=== PATIENT | female | born 1990 | race Caucasian/White ===

== ENCOUNTER 2019-10-27 22:12 | Inpatient (IN) | payer OTHER ==
[~2019-10-27] VITALS: Ht 167.6 cm; Wt 126.0 kg
[~2019-10-27 22:12] MED LIST: DIPH50 PO; TRIA80TC TOP
[2019-10-27 22:47] LABS: BASOPHILS ABSOLUTE AUTO 0.02 K/mm3 (0.00-0.23); BASOPHILS PERCENT AUTO 0 % (0-2); EOSINOPHILS ABSOLUTE AUTO 0.07 K/mm3 (0.00-0.68); EOSINOPHILS PERCENT AUTO 1 % (0-6); Hematocrit 40.8 % (33.0-51.0); Hemoglobin 13.6 g/dL (11.5-16.0); IMMATURE GRAN ABSOLUTE AUTO 0.07 K/mm3 (0.00-0.10); IMMATURE GRAN PERCENT AUTO 1 % (0-1); LYMPHOCYTES PERCENT AUTO 8 % (21-46); MONOCYTES ABSOLUTE AUTO 0.59 K/mm3 (0.16-1.47); MONOCYTES PERCENT AUTO 4 % (4-13); Mean Corpuscular HGB 29.4 pg (26.0-34.0); Mean Corpuscular HGB Conc 33.3 g/dL (31.5-36.5); Mean Corpuscular Volume 88 fL (80-100); Mean Platelet Volume 10.7 fL (9.1-12.4); NEUTROPHILS ABSOLUTE AUTO 12.31 K/mm3 (1.96-9.15); NEUTROPHILS PERCENT AUTO 86 % (41-73); Platelet Count 195 K/mm3 (150-400); RDW Coefficient Variation 14.2 % (11.7-14.2); RDW Standard Deviation 45.4 fL (35.1-46.3); Red Blood Cell Count 4.62 M/mm3 (3.80-5.20); White Blood Cell Count 14.26 K/mm3 (4.00-11.30)
[2019-10-27] MEDS ORDERED: PRENATAL TABLE1 EAC2 PO (22:57)
[2019-10-27] MEDS ORDERED: Evening Primro500 M1 PO (22:58)
--- NOTE | 2019-10-27 23:08 | NUR ---
LABS DRAWN FROM IV START PER HOSPITAL PROTOCOL
--- NOTE | 2019-10-28 17:30 | NUR ---
RN ROUNDED TO HELP PT WITH . INSTRUCT/DEMO WIDENING LATCH, CORRECT POSITIONING AND NIPPLE SHAPE AFTER FEEDS. INSTRUCT IN BOOKLET AND BROCHURE ON WHAT TO EXPECT WITH AND CHANGES IN NB DURING FIRST WEEK OF LIFE. PARENTS LOVING, VERBALIZED UNDERSTANDING AND DENIES ANY FURTHER QUESTIONS OR CONCERNS.
[2019-10-29] MEDS ORDERED: IBU800 M1 PO (07:33)
[2019-10-29 09:07] LABS: Hematocrit 36.5 % (33.0-51.0); Mean Corpuscular HGB 29.6 pg (26.0-34.0); Mean Corpuscular HGB Conc 32.9 g/dL (31.5-36.5); Mean Corpuscular Volume 90 fL (80-100); Mean Platelet Volume 10.4 fL (9.1-12.4); Platelet Count 166 K/mm3 (150-400); RDW Coefficient Variation 14.7 % (11.7-14.2); RDW Standard Deviation 48.4 fL (35.1-46.3); Red Blood Cell Count 4.05 M/mm3 (3.80-5.20); White Blood Cell Count 14.63 K/mm3 (4.00-11.30)
--- NOTE | 2019-10-29 11:44 | NUR ---
WILLARD FROM [facility]ANTI[facility] AT 1130 CARE ASSUMED BY THIS NURSE COLLEGE AT THAT TIME.
--- NOTE | 2019-10-29 11:45 | NUR ---
REPORT TO JULI/IZA VARGAS. MOTHER SITTING UP BF. STABLE.
--- NOTE | 2019-10-29 16:00 | NUR ---
PT DISCHARGED HOME TO THE CARE OF
== END 2019-10-29 16:20 | disposition home or self-care (01) | DRG 807 ==
LOC: OBS 22:12 → BC 22:29
PROVIDERS: ADMIT Advanced Practice Midwife
PROC: 10E0XZZ Delivery of Products of Conception, External Approach (ICD-10-PCS; principal; 2019-10-28)
PROC: 3E0R3BZ Introduction of Anesthetic Agent into Spinal Canal, Percutaneous Approach (ICD-10-PCS; 2019-10-28)
PROC: 0UQMXZZ Repair Vulva, External Approach (ICD-10-PCS; 2019-10-28)
DX: O48.0 Post-term pregnancy (principal); Z37.0 Single live birth; O99.824 Streptococcus B carrier state complicating childbirth; Z3A.40 40 weeks gestation of pregnancy; O99.214 Obesity complicating childbirth; O71.82 Other specified trauma to perineum and vulva; Z87.891 Personal history of nicotine dependence
CPT/HCPCS: 36415; 51702; 85025; 85027; 86900; 86901; J0290; J1885; J2001; J2210; J2405; J2590; J3010; J7120

== ENCOUNTER → 2024-06-06 | Outpatient (CLI) | payer BC, OTHER ==
[~2024-06-06] MED LIST changes: +Evening Primro500 M1 PO; +IBU800 M1 PO; +PRENATAL TABLE1 EAC2 PO
== END ==
LOC: LAB 12:53 → LAB SHORT 12:53
DX: R11.2 Nausea with vomiting, unspecified (principal)
CPT/HCPCS: 87086

== ENCOUNTER → 2024-10-15 | Outpatient (CLI) | payer BC, OTHER ==
[2024-10-15 16:37] LABS: BASOPHILS ABSOLUTE AUTO 0.02 K/mm3 (0.00-0.23); BASOPHILS PERCENT AUTO 0 % (0-2); EOSINOPHILS ABSOLUTE AUTO 0.11 K/mm3 (0.00-0.68); EOSINOPHILS PERCENT AUTO 1 % (0-6); Hematocrit 38.5 % (33.0-51.0); Hemoglobin 12.8 g/dL (11.5-16.0); IMMATURE GRAN ABSOLUTE AUTO 0.04 K/mm3 (0.00-0.10); IMMATURE GRAN PERCENT AUTO 0 % (0-1); LYMPHOCYTES ABSOLUTE AUTO 1.56 K/mm3 (0.84-5.20); LYMPHOCYTES PERCENT AUTO 16 % (21-46); MONOCYTES ABSOLUTE AUTO 0.34 K/mm3 (0.16-1.47); MONOCYTES PERCENT AUTO 4 % (4-13); Mean Corpuscular HGB 28.9 pg (26.0-34.0); Mean Corpuscular HGB Conc 33.2 g/dL (31.5-36.5); Mean Corpuscular Volume 87 fL (80-100); Mean Platelet Volume 10.7 fL (9.1-12.4); NEUTROPHILS ABSOLUTE AUTO 7.69 K/mm3 (1.96-9.15); NEUTROPHILS PERCENT AUTO 79 % (41-73); Platelet Count 219 K/mm3 (150-400); RDW Standard Deviation 44.7 fL (35.1-46.3); Red Blood Cell Count 4.43 M/mm3 (3.80-5.20); White Blood Cell Count 9.76 K/mm3 (4.00-11.30)
== END ==
LOC: LAB 13:54 → LAB SHORT 13:54
PROVIDERS: Advanced Practice Midwife
DX: Z34.92 Encounter for supervision of normal pregnancy, unspecified, second trimester (principal)
CPT/HCPCS: 82950; 85025

== ENCOUNTER → 2024-12-16 | Outpatient (CLI) | payer BC, OTHER | LOC: LAB SHORT 12:55 → LAB 12:55 | DX: Z34.93 Encounter for supervision of normal pregnancy, unspecified, third trimester (principal) | CPT/HCPCS: 87081; 87150 ==